=== PATIENT | male | born 1985 ===

== ENCOUNTER 2018-07-21 20:40 | Emergency (ER) | payer OTHER ==
[~2018-07-21] VITALS: Ht 185.4 cm; Wt 74.8 kg
[2018-07-22 00:24] VITALS: BP 122/78
--- NOTE | 2018-07-22 00:39 | ED GI/GU/ABDOMINAL COMPLAINT ---
History of Present Illness General Chief Complaint: General Adult Stated Complaint: "NOT FEELING GOOD,PANICK ATTACK" Source: patient, family Exam Limitations: no limitations Vital Signs & Intake/Output Vital Signs & Intake/Output Vital Signs Date Time Temp Pulse Resp B/P B/P Pulse O2 O2 Flow FiO2 Mean Ox Delivery Rate 07/22 0024 97.6 68 16 122/78 97 Room Air 07/21 2052 97.6 74 18 125/84 98 Room Air ED Intake and Output 07/22 0000 07/21 1200 Intake Total Output Total Balance Patient 165 lb Weight Weight Reported by Patient Measurement Method Allergies Coded Allergies: No Known Drug Allergies ([facility] 07/21/18) Triage Note: PT TO ED C/O "NOT FEELING GOOD" [facility] +NAUSEA, FEELING HOT, DIZZY, "I FELT LIKE I WAS HAVING A HEAR ATTACK." HAD NEGATIVE CARDIAC WORKUPWAS DIRECTED TO FOLLOW UP WITH ABDOMINAL IMAGING ON MONDAY, WAS NOT NOTIFIED OF ANY ABNORMAL FINDINGS. STARTED ZOFRAN AND CELEXA 10 MG YESTERDAY. MOVED BOWELS TODAY. TO ED C/O CRAMPING ABDOMINAL, TENDER ON PALPATION. ALSO C/O BURNING PAIN IN EPIGASTRIC AREA. "I FEEL LIKE MY LEGS ARE GETTING STRETCHED" +TINGELING IN FINGER TIPS. DIZZINESS WORSE WITH MOVEMENT, BALANCE IS OFF, NAUSEA WORSENS PT ALSO C/O KNEE PAIN. Triage Nurses Notes Reviewed? yes HPI: Patient presents for evaluation of a gradual onset of "not feeling good, not feeling comfortable" that began vaginally on Monday. The patient was seen at [facility] the evaluation was apparently unremarkable. Patient was evaluated yesterday at a walk-in clinic and was prescribed Celexa and Zofran for symptoms. He states today after showering his abdomen became very sensitive to the touch and he felt somewhat nauseous. Sensitivity was located in the lower abdomen bilaterally but then radiated to both shoulders and the left arm and and descended down below the abdomen to the knees ankles and toes. The pain is described as intermittent and is gone currently. Occasionally he feels a "ticking" in the epigastric area and also feels like "hot water" is "killing him ". After this he feels cold. Past History Travel History Traveled to [place] past 21 day No Medical History Any Pertinent Medical History? see below for history Neurological: NONE EENT: NONE Cardiovascular: NONE Respiratory: NONE Gastrointestinal: NONE Hepatic: NONE Renal: NONE Musculoskeletal: NONE Psychiatric: NONE Endocrine: NONE Surgical History Surgical History: non-contributory Psychosocial History What is your primary language Czech Tobacco Use: Never used ETOH Use: denies use Illicit Drug Use: denies illicit drug use Family History Hx Contributory? No Review of Systems Review of Systems Constitutional: Reports: no symptoms. EENTM: Reports: no symptoms. Respiratory: Reports: no symptoms. Cardiovascular: Reports: no symptoms. GI: Reports: see HPI. Genitourinary: Reports: no symptoms. Musculoskeletal: Reports: no symptoms. Skin: Reports: no symptoms. Neurological/Psychological: Reports: see HPI. Hematologic/Endocrine: Reports: no symptoms. Immunologic/Allergic: Reports: no symptoms. All Other Systems: Reviewed and Negative Physical Exam Physical Exam Gastrointestinal: SEE BELOW Comments: General: Alert, calm, cooperative Head: Normocephalic, atraumatic Eyes: Normal inspection, no nystagmus, EOMI Ears: Normal inspection Nose: Normal inspection Throat: Moist mucosa Neck: Supple, no goiter Heart: Regular rate and rhythm, no murmurs rubs or gallops Lungs: Clear to auscultation bilaterally with good air entry Abdomen: Soft nontender nondistended, normal bowel sounds Chest: Nontender Extremities: Normal range of motion grossly, mild tremors present, no cyanosis clubbing or edema of the upper extremities, distal pulses normal, sensation intact to light touch, deep tendon reflexes normal Neurologic: cranial nerves II through XII grossly intact, speech clear, gait normal Psychiatric: No apparent delusions or hallucinations, no pressured speech or thought blocking Core Measures ACS in differential dx? No Sepsis Present: No Sepsis Focused Exam Completed? No Progress Differential Diagnosis: oBSTRUCTION, DIVERTICULITIS, COLITIS, RENAL COLIC, ANXIETY, GAS PAINS, IRRITABLE BOWEL SYNDROME Plan of Care: Orders Procedure Date/time Status CT ABD & PELVIS W/O IV CONTRAS 07/22 0038 Active Current Medications Sig/Jonh Start time Last Medication Dose Stop Time Status Admin Lorazepam 0.5 MG ONCE ONE 07/22 0045 UNVr (Ativan) 07/22 0046 Diagnostic Imaging: Discussed w/RAD: CT Scan. Radiology Impression: PATIENT: DEBI VALENCIA PRESENT AGE: 33 PATIENT ACCOUNT NO: [id number] : 85 LOCATION: [facility] ORDERING PHYSICIAN: Cassius Puentes MD SERVICE DATE: 07/22/18 EXAM TYPE: CAT - CT ABD & PELVIS W/O IV CONTRAS EXAMINATION: CT ABDOMEN AND PELVIS WITHOUT CONTRAST CLINICAL INFORMATION: Lower abdominal discomfort COMPARISON: None TECHNIQUE: Multidetector volumetric imaging was performed from the superior aspect of the liver through the pubic symphysis. Sagittal and coronal reformatted images were obtained on the technologist's workstation. DLP: 284.83 mGy-cm FINDINGS: LUNG BASES: The visualized lung bases are unremarkable. LIVER, GALLBLADDER, AND BILIARY TREE: The liver is normal in size, shape, and attenuation. No focal hepatic lesion or biliary ductal dilatation is present. The gallbladder is unremarkable with no evidence of radiopaque gallstones, gallbladder wall thickening, or obvious pericholecystic inflammatory changes. PANCREAS: Unremarkable. SPLEEN: Unremarkable. ADRENAL GLANDS: Unremarkable. KIDNEYS AND URETERS: The kidneys are normal in size, shape, and attenuation. No hydronephrosis, hydroureter, or calculi seen. No perinephric stranding. BLADDER: Unremarkable. GASTROINTESTINAL TRACT: The small and large bowel are unremarkable. The appendix is unremarkable. ABDOMINAL WALL: No significant hernia is appreciated. LYMPH NODES: Normal. VASCULAR: Unremarkable. PELVIC VISCERA: Unremarkable. OSSEOUS STRUCTURES: Unremarkable. IMPRESSION: No acute findings identified in the abdomen/pelvis. DICTATED BY: Lucas Butterfield MD DATE/ TIME DICTATED:07/22/18147 CLAY ARTIST:FERNANDO DATE/TIME TRANSCRIBED: 07/22/18147 CONFIDENTIAL, DO NOT COPY WITHOUT APPROPRIATE AUTHORIZATION. < Electronically signed in Other Vendor System> SIGNED BY: Lucas Butterfield MD 07/22/18157 Initial ED EKG: none Departure Departure Disposition: HOME OR SELF CARE Condition: Stable Clinical Impression Primary Impression: Nonspecific abdominal pain Secondary Impressions: Anxiety Referrals: Carl Griffith MD (PCP/Family) Additional Instructions: Ativan as prescribed for anxiety. Follow-up with your primary care doctor this week for reevaluation. Return if any concerns or sudden worsening. Please note that there might be incidental findings in your evaluation that are unrelated to the current emergency department visit. Please notify your primary care doctor about this emergency department visit in order to obtain and review all of the testing performed so that these incidental findings can be monitored as needed. If you had an x-ray performed, please understand that some fractures or other findings may not be seen on the initial set of x-rays. If your symptoms persist you might need a repeat set of x-rays to check for such a fracture. If you had a laceration evaluated, please understand that foreign bodies such as glass or wood may not be visible to the naked eye or on plain x-rays. If the wound becomes red, swollen, increasingly more painful or if there is any drainage from the wound, please have it reevaluated by a physician for the possibility of a retained foreign body. If you're unable to follow up as outlined in the discharge instructions please return to the emergency department. Thank you for choosing the [facility] Emergency Department for your care. It was a pleasure to serve you today. Cassius Puentes M.D. [facility] Departure Forms: Customer Survey General Discharge Information
--- NOTE | 2018-07-22 01:58 | CT SCAN REPORT ---
EXAMINATION: CT ABDOMEN AND PELVIS WITHOUT CONTRAST CLINICAL INFORMATION: Lower abdominal discomfort COMPARISON: None TECHNIQUE: Multidetector volumetric imaging was performed from the superior aspect of the liver through the pubic symphysis. Sagittal and coronal reformatted images were obtained on the technologist's workstation. DLP: 284.83 mGy-cm FINDINGS: LUNG BASES: The visualized lung bases are unremarkable. LIVER, GALLBLADDER, AND BILIARY TREE: The liver is normal in size, shape, and attenuation. No focal hepatic lesion or biliary ductal dilatation is present. The gallbladder is unremarkable with no evidence of radiopaque gallstones, gallbladder wall thickening, or obvious pericholecystic inflammatory changes. PANCREAS: Unremarkable. SPLEEN: Unremarkable. ADRENAL GLANDS: Unremarkable. KIDNEYS AND URETERS: The kidneys are normal in size, shape, and attenuation. No hydronephrosis, hydroureter, or calculi seen. No perinephric stranding. BLADDER: Unremarkable. GASTROINTESTINAL TRACT: The small and large bowel are unremarkable. The appendix is unremarkable. ABDOMINAL WALL: No significant hernia is appreciated. LYMPH NODES: Normal. VASCULAR: Unremarkable. PELVIC VISCERA: Unremarkable. OSSEOUS STRUCTURES: Unremarkable. IMPRESSION: No acute findings identified in the abdomen/pelvis.
[2018-07-22] MEDS ORDERED: ATIVAN0.5 M1 PO (02:23)
== END 2018-07-22 02:24 ==
LOC: ERH 20:40
DX: R10.13 Epigastric pain (principal)
CPT/HCPCS: 74176